=== PATIENT | male | born 1935 | race Caucasian/White ===

== ENCOUNTER 2017-07-21 01:00 | Emergency (ER) | payer MEDICARE ==
[~2017-07-21] VITALS: Ht 175.3 cm; Wt 69.0 kg
[~2017-07-21 01:00] MED LIST: ASPI-1071 PO; DUTA0.5C40 PO; FLO0.4C PO; IBUP-1984 PO; NUT.237L32 PO; OLAN2.5T28 PO; SENN-129 PO; TRAZ-143 PO
[2017-07-21 01:21] LABS: BASOPHILS % (AUTO) 0.4 % (0-1); EOSINOPHILS # (AUTO) 0.4 X10'3 (0-0.9); HEMATOCRIT 42.9 % (42.0-52.0); HEMOGLOBIN 14.4 g/dl (14.0-17.9); LYMPHOCYTES # (AUTO) 1.2 X10'3 (1.1-4.8); LYMPHOCYTES % (AUTO) 19.3 % (21-51); MEAN CORPUSCULAR HGB CONC 33.6 % (33.0-36.5); MEAN CORPUSCULAR VOLUME 98.5 FL (78-98); MEAN PLATELET VOLUME 6.2 FL (7.4-10.4); MONOCYTES # (AUTO) 0.5 X10'3 (0-0.9); MONOCYTES % (AUTO) 8.8 % (2-12); NEUTROPHILS % (AUTO) 65.5 % (42-75); PLATELET COUNT 264 X10'3 (140-440); RED BLOOD COUNT 4.36 X10'6 (4.70-6.10); WHITE BLOOD COUNT 6.1 X10'3 (4.5-11.0)
[2017-07-21 01:34] LABS: ALANINE AMINOTRANSFERASE 18 U/L (12-78); ALBUMIN 3.5 G/DL (3.4-5.0); ALBUMIN/GLOBULIN RATIO 1.1 (1.1-1.5); ALKALINE PHOSPHATASE 58 IU/L (46-116); ANION GAP 5 (8-16); ASPARTATE AMINO TRANSFERASE 12 U/L (10-37); BILIRUBIN,TOTAL 0.4 MG/DL (0.1-1.0); BLOOD UREA NITROGEN 30 MG/DL (7-18); CALCIUM 8.2 MG/DL (8.5-10.1); CHLORIDE 110 MMOL/L (99-107); GLUCOSE 111 MG/DL (70-104); SODIUM 144 MMOL/L (135-145); TOTAL CARBON DIOXIDE 28.8 MMOL/L (24-32); TOTAL PROTEIN 6.6 G/DL (6.4-8.2); eGFR 72 ML/MIN
[2017-07-21 02:24] VITALS: BP 117/75
== END 2017-07-21 02:26 | disposition home or self-care (01) ==
LOC: ER 01:01
DX: S00.81XA Abrasion of other part of head, initial encounter (principal); G43.909 Migraine, unspecified, not intractable, without status migrainosus; F03.90 Unspecified dementia, unspecified severity, without behavioral disturbance, psychotic disturbance, mood disturbance, and anxiety; I25.10 Atherosclerotic heart disease of native coronary artery without angina pectoris; E78.00 Pure hypercholesterolemia, unspecified; I25.2 Old myocardial infarction; Z95.1 Presence of aortocoronary bypass graft; Z86.73 Personal history of transient ischemic attack (TIA), and cerebral infarction without residual deficits; Z88.0 Allergy status to penicillin; Z79.82 Long term (current) use of aspirin; W06.XXXA Fall from bed, initial encounter; Y93.89 Activity, other specified; Y92.89 Other specified places as the place of occurrence of the external cause; Y99.8 Other external cause status
CPT/HCPCS: 36415; 80053; 85025; 99284

== ENCOUNTER 2017-09-26 11:06 | Inpatient (IN) | payer MEDICARE ==
[~2017-09-26] VITALS: Ht 172.7 cm; Wt 66.0 kg
[2017-09-26] MEDS ORDERED: normal saline 1000ML IV soln IVB ONE (11:25)
[2017-09-26 11:43] LABS: BASOPHILS % (AUTO) 0.3 % (0-1); EOSINOPHILS # (AUTO) 0.3 X10'3 (0-0.9); EOSINOPHILS % (AUTO) 2.9 % (0-6); HEMATOCRIT 41.5 % (42.0-52.0); HEMOGLOBIN 14.1 g/dl (14.0-17.9); LYMPHOCYTES # (AUTO) 0.7 X10'3 (1.1-4.8); MEAN CORPUSCULAR HEMOGLOBIN 33.6 PG (27.0-31.0); MEAN CORPUSCULAR HGB CONC 34.1 % (33.0-36.5); MEAN CORPUSCULAR VOLUME 98.4 FL (78-98); MEAN PLATELET VOLUME 6.4 FL (7.4-10.4); MONOCYTES # (AUTO) 0.8 X10'3 (0-0.9); MONOCYTES % (AUTO) 8.1 % (2-12); NEUTROPHILS # (AUTO) 7.7 X10'3 (1.8-7.7); NEUTROPHILS % (AUTO) 81.7 % (42-75); PLATELET COUNT 197 X10'3 (140-440); RED BLOOD COUNT 4.21 X10'6 (4.70-6.10); RED CELL DISTRIBUTION WIDTH 14.3 % (11.5-14.5); WHITE BLOOD COUNT 9.4 X10'3 (4.5-11.0)
[2017-09-26 12:07] LABS: ALANINE AMINOTRANSFERASE 12 U/L (12-78); ALBUMIN 3.1 G/DL (3.4-5.0); ALBUMIN/GLOBULIN RATIO 0.8 (1.1-1.5); ALKALINE PHOSPHATASE 59 IU/L (46-116); ANION GAP 8 (8-16); ASPARTATE AMINO TRANSFERASE 37 U/L (10-37); BILIRUBIN,TOTAL 0.8 MG/DL (0.1-1.0); BLOOD UREA NITROGEN 32 MG/DL (7-18); BUN/CREATININE RATIO 33.3 (5.4-32.0); CALCIUM 8.3 MG/DL (8.5-10.1); CHLORIDE 108 MMOL/L (99-107); CREATININE 0.96 MG/DL (0.60-1.10); GLUCOSE 90 MG/DL (70-104); MAGNESIUM 2.3 MG/DL (1.5-2.4); PHOSPHORUS 2.3 MG/DL (2.3-4.5); POTASSIUM 3.9 MMOL/L (3.5-5.1); SODIUM 144 MMOL/L (135-145); TOTAL CARBON DIOXIDE 27.7 MMOL/L (24-32); TOTAL PROTEIN 6.9 G/DL (6.4-8.2); eGFR 75 ML/MIN
[2017-09-26 13:04] LABS: CLARITY,URINE Cloudy (Clear); COLOR,URINE Yellow (Yellow); GLUCOSE, URINE Negative (Neg); KETONES,URINE 15 mg/dl (Neg); LEUKOCYTE ESTERASE ,URINE Small (Neg); NITRITES, URINE Negative (Neg); OCCULT BLOOD,URINE Negative (Neg); PH,URINE 5.5 (4.8-8.0); PROTEIN,URINE 30 mg/dl (Neg); UA COLLECTION TYPE STRAIGHT CATH
[2017-09-26 13:15] LABS: MUCUS STRANDS MANY /LPF (Neg); RBC,URINE NONE SEEN /HPF (0-2); SQUAMOUS EPITHELIAL CELL,UR NONE SEEN /LPF (FEW); WBC,URINE 0-4 /HPF (0-4)
[2017-09-26 13:17] LABS: BACTERIA,URINE NONE SEEN /HPF (Neg)
[2017-09-26] MEDS ORDERED: ondansetron/PF 4mg/2ml inj IV PRN (15:05)
[2017-09-26] MEDS ORDERED: mag hydrox/Alum hydrox/simeth 30ml oral suspension PO PRN (15:05)
[2017-09-26] MEDS ORDERED: magnesium hydroxide 30ml (MOM) UD suspension PO PRN (15:05)
[2017-09-26] MEDS ORDERED: acetaminophen 325mg tablet PO PRN (15:05)
[2017-09-26] MEDS ORDERED: sennosides/docusate sodium tablet PO PRN (15:25)
[2017-09-26] MEDS: normal saline 1000ml 1,000 ML IV SCH (16:33)
[2017-09-26 18:02] LABS: GLUCOSE,CSF 67 MG/DL (40-75); TOTAL PROTEIN,CSF 83 MG/DL (30-60)
[2017-09-26 18:32] LABS: APPEARANCE,CSF CLEAR; CSF RBC 9 /CU MM (0); CSF SUPERNATANT COLOR COLORLESS; CSF VOLUME 10 ML; TUBE# COUNTED 1
[2017-09-26 18:33] LABS: APPEARANCE,CSF CLEAR; CSF RBC 0 /CU MM (0); CSF SUPERNATANT COLOR COLORLESS; CSF VOLUME 10 ML; TUBE# COUNTED 4
[2017-09-26 18:35] LABS: CSF WBC CT 0 /CU MM (0-5); CSF WBC CT 1 /CU MM (0-5)
[2017-09-26] MEDS: OLANZapine 2.5MG tablet PO SCH (21:00)
[2017-09-26] MEDS: dutasteride 0.5 MG capsule PO SCH (21:00)
[2017-09-26 22:00] VITALS: BP 141/82
[2017-09-26] MEDS ORDERED: MORPHINE 2MG in 2ml NS syringe IV PRN (23:30)
[2017-09-27] VITALS (25 sets, daily range): BP systolic 114–166; BP diastolic 63–90
[2017-09-27] MEDS: normal saline 1000ml 1,000 ML IV SCH ×2 (05:28→17:44)
[2017-09-27 05:47] LABS: BASOPHILS % (AUTO) 0.5 % (0-1); EOSINOPHILS # (AUTO) 0.6 X10'3 (0-0.9); EOSINOPHILS % (AUTO) 7.8 % (0-6); HEMATOCRIT 39.6 % (42.0-52.0); HEMOGLOBIN 13.5 g/dl (14.0-17.9); LYMPHOCYTES # (AUTO) 0.9 X10'3 (1.1-4.8); LYMPHOCYTES % (AUTO) 12.1 % (21-51); MEAN CORPUSCULAR HEMOGLOBIN 33.5 PG (27.0-31.0); MEAN CORPUSCULAR HGB CONC 34.2 % (33.0-36.5); MEAN CORPUSCULAR VOLUME 98.2 FL (78-98); MEAN PLATELET VOLUME 6.8 FL (7.4-10.4); MONOCYTES # (AUTO) 0.6 X10'3 (0-0.9); MONOCYTES % (AUTO) 7.9 % (2-12); NEUTROPHILS # (AUTO) 5.6 X10'3 (1.8-7.7); NEUTROPHILS % (AUTO) 71.7 % (42-75); PLATELET COUNT 201 X10'3 (140-440); RED BLOOD COUNT 4.03 X10'6 (4.70-6.10); RED CELL DISTRIBUTION WIDTH 13.9 % (11.5-14.5); WHITE BLOOD COUNT 7.8 X10'3 (4.5-11.0)
[2017-09-27 06:13] LABS: ALANINE AMINOTRANSFERASE 29 U/L (12-78); ALBUMIN 2.6 G/DL (3.4-5.0); ALBUMIN/GLOBULIN RATIO 0.7 (1.1-1.5); ALKALINE PHOSPHATASE 55 IU/L (46-116); ANION GAP 8 (8-16); ASPARTATE AMINO TRANSFERASE 34 U/L (10-37); BILIRUBIN,TOTAL 0.8 MG/DL (0.1-1.0); BLOOD UREA NITROGEN 24 MG/DL (7-18); BUN/CREATININE RATIO 30.8 (5.4-32.0); CHLORIDE 111 MMOL/L (99-107); CREATININE 0.78 MG/DL (0.60-1.10); GLUCOSE 90 MG/DL (70-104); POTASSIUM 3.9 MMOL/L (3.5-5.1); SODIUM 144 MMOL/L (135-145); TOTAL CARBON DIOXIDE 25.5 MMOL/L (24-32); TOTAL PROTEIN 6.4 G/DL (6.4-8.2); eGFR > 90 ML/MIN
[2017-09-27] MEDS: tamsulosin 0.4mg capsule PO SCH ×2 (08:00→08:21)
[2017-09-27 10:17] LABS: PARTIAL THROMBOPLASTIN TIME 30 SECONDS (22-32); PROTHROMBIN TIME 10.6 SECONDS (9.0-12.0)
[2017-09-27] MEDS ORDERED: ceFAZolin 1000mg inj ONE ×3 (11:52→13:44)
[2017-09-27] MEDS ORDERED: vancomycin 1,000mg inj ONE ×2 (11:52→13:44)
[2017-09-27] MEDS ORDERED: clindamycin 600mg/D5W 50ml 50 ML IV ONE (12:00)
[2017-09-27] MEDS ORDERED: morphine 4 MG/ML inj SYRINge IV PRN ×3 (12:13→13:40)
[2017-09-27] MEDS ORDERED: BUPIVAcaine/PF 7.5mg/ml (0.75%) 10ml vial ONE (12:58)
[2017-09-27] MEDS ORDERED: fentaNYL/PF 50MCG/1 ML 2ML syringe ONE (13:00)
[2017-09-27] MEDS ORDERED: MIDAZolam 5mg/5ml vial ONE (13:01)
[2017-09-27] MEDS ORDERED: ringers solution, lacted 1,000 ML IV SCH (13:37)
[2017-09-27] MEDS ORDERED: ondansetron/PF 4mg/2ml inj IV PRN ×2 (13:40→15:20)
[2017-09-27] MEDS ORDERED: meperidine/PF 50mg/ml syringe IV PRN ×3 (13:40)
[2017-09-27] MEDS ORDERED: proCHLORperazine 10 MG/2 ml inj IV PRN (13:40)
[2017-09-27] MEDS ORDERED: morphine 10mg/ml inj. ONE (14:38)
[2017-09-27] MEDS ORDERED: ROPIVAcaine 0.5% (5mg/ml) 30ml vial ONE (14:38)
[2017-09-27] MEDS ORDERED: ketorolac trometh. 30mg/ml inj. ONE (14:38)
[2017-09-27] MEDS ORDERED: oxyCODONE IR 5mg (immed. release) tablet PO PRN (15:20)
[2017-09-27] MEDS ORDERED: bisacodyl 10mg suppository rectal RC PRN (15:20)
[2017-09-27] MEDS ORDERED: acetaminophen 325mg tablet PO PRN (15:20)
[2017-09-27] MEDS ORDERED: magnesium hydroxide 30ml (MOM) UD suspension PO PRN (15:20)
[2017-09-27] MEDS ORDERED: HYDROmorphone inj. 0.5 MG/0.5 ML DISP.SYRIN IV PRN ×2 (15:20)
[2017-09-27] MEDS ORDERED: diphenhydrAMINE 25mg capsule PO PRN ×2 (15:20)
[2017-09-27] MEDS ORDERED: BUPIVAcaine/PF 2.5 mg/ml (0.25%) 30ml vial ONE (15:22)
[2017-09-27] MEDS: ceFAZolin 1GM/D5W- ADD-VANTAGE 50 ML IV SCH ×2 (16:00→23:34)
[2017-09-27] MEDS ORDERED: naloxone 0.4 mg/ml inj ONE (17:12)
[2017-09-27] MEDS ORDERED: naloxone 0.4 mg/ml inj IV PRN (17:15)
[2017-09-27] MEDS ORDERED: tranexamic acid inj. 1,000 MG in normal saline 100ml IV soln 100 ML IV ONE (18:20)
[2017-09-27] MEDS ORDERED: vancomycin/NS 1 GM ADD-VANTAGE 250 ML IV SCH (20:00)
[2017-09-27] MEDS: sennosides 8.6mg tablet PO SCH (20:13)
[2017-09-27] MEDS: celeCOXIB 100mg capsule PO SCH (20:13)
[2017-09-27] MEDS: gabapentin 300mg capsule PO SCH (20:14)
[2017-09-27] MEDS: acetaminophen 325mg tablet PO SCH (20:14)
[2017-09-27] MEDS: dutasteride 0.5 MG capsule PO SCH (22:16)
[2017-09-27] MEDS: OLANZapine 2.5MG tablet PO SCH (22:16)
[2017-09-27] MEDS: potassium cl 20mEq in 1/2 NS 1,000 ML IV SCH ×2 (22:23→23:19)
[2017-09-28 02:00] VITALS: BP 106/64
[2017-09-28] MEDS: acetaminophen 325mg tablet PO SCH ×4 (02:00→20:00)
[2017-09-28] MEDS: oxyCODONE IR 5mg (immed. release) tablet PO PRN ×2 (05:16→21:07)
[2017-09-28 05:34] LABS: BASOPHILS % (AUTO) 0 % (0-1); EOSINOPHILS # (AUTO) 0.1 X10'3 (0-0.9); EOSINOPHILS % (AUTO) 1.3 % (0-6); HEMATOCRIT 36.9 % (42.0-52.0); HEMOGLOBIN 12.5 g/dl (14.0-17.9); LYMPHOCYTES # (AUTO) 0.4 X10'3 (1.1-4.8); LYMPHOCYTES % (AUTO) 5.5 % (21-51); MEAN CORPUSCULAR HEMOGLOBIN 33.6 PG (27.0-31.0); MEAN CORPUSCULAR HGB CONC 33.9 % (33.0-36.5); MEAN CORPUSCULAR VOLUME 99.1 FL (78-98); MEAN PLATELET VOLUME 7.2 FL (7.4-10.4); MONOCYTES # (AUTO) 0.6 X10'3 (0-0.9); MONOCYTES % (AUTO) 7.3 % (2-12); NEUTROPHILS % (AUTO) 85.9 % (42-75); PLATELET COUNT 207 X10'3 (140-440); RED BLOOD COUNT 3.72 X10'6 (4.70-6.10); RED CELL DISTRIBUTION WIDTH 13.8 % (11.5-14.5); WHITE BLOOD COUNT 8.1 X10'3 (4.5-11.0)
[2017-09-28 06:00] VITALS: BP 126/66
[2017-09-28 06:02] LABS: ALANINE AMINOTRANSFERASE 28 U/L (12-78); ALBUMIN 2.5 G/DL (3.4-5.0); ALBUMIN/GLOBULIN RATIO 0.7 (1.1-1.5); ALKALINE PHOSPHATASE 50 IU/L (46-116); ANION GAP 9 (8-16); ASPARTATE AMINO TRANSFERASE 32 U/L (10-37); BILIRUBIN,TOTAL 0.7 MG/DL (0.1-1.0); BLOOD UREA NITROGEN 19 MG/DL (7-18); BUN/CREATININE RATIO 24.7 (5.4-32.0); CALCIUM 8.1 MG/DL (8.5-10.1); CHLORIDE 109 MMOL/L (99-107); CREATININE 0.77 MG/DL (0.60-1.10); GLUCOSE 138 MG/DL (70-104); POTASSIUM 4.4 MMOL/L (3.5-5.1); SODIUM 142 MMOL/L (135-145); TOTAL CARBON DIOXIDE 23.7 MMOL/L (24-32); eGFR > 90 ML/MIN
[2017-09-28] MEDS: normal saline 1000ml 1,000 ML IV SCH ×2 (07:04→20:24)
[2017-09-28] MEDS: potassium cl 20mEq in 1/2 NS 1,000 ML IV SCH ×3 (07:19→22:29)
[2017-09-28] MEDS: celeCOXIB 100mg capsule PO SCH ×3 (08:00→21:07)
[2017-09-28] MEDS: enoxaparin 40mg/0.4ml syringe SQ SCH (08:29)
[2017-09-28] MEDS: tamsulosin 0.4mg capsule PO SCH (08:29)
[2017-09-28] MEDS: carbidoba-levodopa 25-100mg tablet PO SCH (08:30)
[2017-09-28] MEDS: gabapentin 300mg capsule PO SCH ×3 (08:30→21:06)
[2017-09-28 10:29] VITALS: BP 95/48
[2017-09-28 18:00] VITALS: BP 104/50
[2017-09-28] MEDS: dutasteride 0.5 MG capsule PO SCH (21:00)
[2017-09-28] MEDS: sennosides 8.6mg tablet PO SCH (21:00)
[2017-09-28] MEDS: OLANZapine 2.5MG tablet PO SCH (21:08)
[2017-09-28] MEDS: levoFLOXACIN-Levaquin 500mg/D5 100 ML IV SCH (22:13)
[2017-09-28 23:00] VITALS: BP 114/54
[2017-09-29] MEDS: acetaminophen 325mg tablet PO SCH ×4 (01:49→14:00)
[2017-09-29] MEDS: oxyCODONE IR 5mg (immed. release) tablet PO PRN ×2 (05:16→09:05)
[2017-09-29] MEDS: potassium cl 20mEq in 1/2 NS 1,000 ML IV SCH (05:25)
[2017-09-29 06:00] VITALS: BP 155/87
[2017-09-29 06:34] LABS: BASOPHILS % (AUTO) 0.3 % (0-1); EOSINOPHILS # (AUTO) 0.3 X10'3 (0-0.9); EOSINOPHILS % (AUTO) 3.4 % (0-6); HEMATOCRIT 34.4 % (42.0-52.0); HEMOGLOBIN 11.7 g/dl (14.0-17.9); LYMPHOCYTES % (AUTO) 10.5 % (21-51); MEAN CORPUSCULAR HEMOGLOBIN 33.4 PG (27.0-31.0); MEAN CORPUSCULAR VOLUME 98.3 FL (78-98); MEAN PLATELET VOLUME 6.3 FL (7.4-10.4); MONOCYTES # (AUTO) 0.7 X10'3 (0-0.9); MONOCYTES % (AUTO) 7.3 % (2-12); NEUTROPHILS # (AUTO) 7.2 X10'3 (1.8-7.7); NEUTROPHILS % (AUTO) 78.5 % (42-75); PLATELET COUNT 236 X10'3 (140-440); WHITE BLOOD COUNT 9.1 X10'3 (4.5-11.0)
[2017-09-29 06:53] LABS: ALANINE AMINOTRANSFERASE 27 U/L (12-78); ALBUMIN 2.2 G/DL (3.4-5.0); ALBUMIN/GLOBULIN RATIO 0.6 (1.1-1.5); ALKALINE PHOSPHATASE 45 IU/L (46-116); ANION GAP 8 (8-16); ASPARTATE AMINO TRANSFERASE 26 U/L (10-37); BILIRUBIN,TOTAL 0.4 MG/DL (0.1-1.0); BLOOD UREA NITROGEN 24 MG/DL (7-18); BUN/CREATININE RATIO 26.7 (5.4-32.0); CALCIUM 7.8 MG/DL (8.5-10.1); CHLORIDE 112 MMOL/L (99-107); GLUCOSE 112 MG/DL (70-104); POTASSIUM 3.9 MMOL/L (3.5-5.1); SODIUM 144 MMOL/L (135-145); TOTAL PROTEIN 5.6 G/DL (6.4-8.2); eGFR 81 ML/MIN
[2017-09-29] MEDS: celeCOXIB 100mg capsule PO SCH ×3 (08:00→19:14)
[2017-09-29] MEDS: enoxaparin 40mg/0.4ml syringe SQ SCH ×2 (08:00→09:06)
[2017-09-29] MEDS: carbidoba-levodopa 25-100mg tablet PO SCH (09:05)
[2017-09-29] MEDS: gabapentin 300mg capsule PO SCH ×4 (09:05→19:13)
[2017-09-29] MEDS: tamsulosin 0.4mg capsule PO SCH (09:05)
[2017-09-29] MEDS: normal saline 1000ml 1,000 ML IV SCH ×2 (09:39→23:04)
[2017-09-29 10:00] VITALS: BP 141/62
[2017-09-29 11:14] LABS: CRYPTOCOCCUS ANTIGEN, CSF Negative (Negative)
[2017-09-29 13:37] LABS: CSF WEST NILE VIRUS, IGG Negative (Negative); VDRL, CSF Non Reactive (Non Rea:<1:1)
[2017-09-29] MEDS ORDERED: acetaminophen 325mg tablet PO PRN (15:20)
[2017-09-29 15:24] LABS: CSF WEST NILE VIRUS, IGM Negative (Negative)
[2017-09-29 18:00] VITALS: BP 141/73
[2017-09-29 19:11] LABS: HSV 1 PCR Negative (Negative); HSV 2 PCR Negative (Negative)
[2017-09-29] MEDS: lactobacillus rhamnosus 10,000 MMU CELLS/CAPSULE PO SCH (19:14)
[2017-09-29] MEDS: OLANZapine 2.5MG tablet PO SCH (19:15)
[2017-09-29] MEDS: dutasteride 0.5 MG capsule PO SCH (19:15)
[2017-09-29] MEDS: sennosides 8.6mg tablet PO SCH (19:16)
[2017-09-29 22:00] VITALS: BP 157/88
[2017-09-29] MEDS: levoFLOXACIN-Levaquin 500mg/D5 100 ML IV SCH (23:46)
[2017-09-30 06:00] VITALS: BP 158/87
[2017-09-30 06:06] LABS: ALANINE AMINOTRANSFERASE 28 U/L (12-78); ALBUMIN 2.3 G/DL (3.4-5.0); ALBUMIN/GLOBULIN RATIO 0.7 (1.1-1.5); ALKALINE PHOSPHATASE 48 IU/L (46-116); ANION GAP 10 (8-16); ASPARTATE AMINO TRANSFERASE 27 U/L (10-37); BILIRUBIN,TOTAL 0.6 MG/DL (0.1-1.0); BLOOD UREA NITROGEN 17 MG/DL (7-18); BUN/CREATININE RATIO 21.3 (5.4-32.0); CALCIUM 8.1 MG/DL (8.5-10.1); CHLORIDE 111 MMOL/L (99-107); GLUCOSE 114 MG/DL (70-104); POTASSIUM 3.8 MMOL/L (3.5-5.1); SODIUM 145 MMOL/L (135-145); TOTAL CARBON DIOXIDE 24.5 MMOL/L (24-32); TOTAL PROTEIN 5.8 G/DL (6.4-8.2); eGFR > 90 ML/MIN
[2017-09-30 06:23] LABS: BASOPHILS % (AUTO) 0.5 % (0-1); EOSINOPHILS # (AUTO) 0.5 X10'3 (0-0.9); EOSINOPHILS % (AUTO) 5.6 % (0-6); HEMATOCRIT 34.5 % (42.0-52.0); HEMOGLOBIN 11.7 g/dl (14.0-17.9); LYMPHOCYTES # (AUTO) 1.1 X10'3 (1.1-4.8); LYMPHOCYTES % (AUTO) 12.3 % (21-51); MEAN CORPUSCULAR HEMOGLOBIN 33.1 PG (27.0-31.0); MEAN CORPUSCULAR HGB CONC 33.9 % (33.0-36.5); MEAN CORPUSCULAR VOLUME 97.6 FL (78-98); MEAN PLATELET VOLUME 6.5 FL (7.4-10.4); MONOCYTES # (AUTO) 0.7 X10'3 (0-0.9); MONOCYTES % (AUTO) 8.2 % (2-12); NEUTROPHILS # (AUTO) 6.3 X10'3 (1.8-7.7); NEUTROPHILS % (AUTO) 73.4 % (42-75); PLATELET COUNT 241 X10'3 (140-440); RED BLOOD COUNT 3.53 X10'6 (4.70-6.10); RED CELL DISTRIBUTION WIDTH 13.8 % (11.5-14.5); WHITE BLOOD COUNT 8.6 X10'3 (4.5-11.0)
[2017-09-30] MEDS: tamsulosin 0.4mg capsule PO SCH (09:09)
[2017-09-30] MEDS: lactobacillus rhamnosus 10,000 MMU CELLS/CAPSULE PO SCH ×2 (09:09→20:00)
[2017-09-30] MEDS: carbidoba-levodopa 25-100mg tablet PO SCH (09:09)
[2017-09-30] MEDS: gabapentin 300mg capsule PO SCH ×2 (09:09→20:20)
[2017-09-30] MEDS: celeCOXIB 100mg capsule PO SCH ×2 (09:09→20:10)
[2017-09-30] MEDS: enoxaparin 40mg/0.4ml syringe SQ SCH (09:10)
[2017-09-30] MEDS: levoFLOXACIN-Levaquin 500mg/D5 100 ML IV SCH (09:10)
[2017-09-30 10:00] VITALS: BP 95/52
[2017-09-30 18:00] VITALS: BP 111/61
[2017-09-30] MEDS: normal saline 1000ml 1,000 ML IV SCH (18:33)
[2017-09-30] MEDS: OLANZapine 2.5MG tablet PO SCH (20:10)
[2017-09-30] MEDS: sennosides 8.6mg tablet PO SCH (20:20)
[2017-09-30] MEDS: dutasteride 0.5 MG capsule PO SCH (20:20)
[2017-10-01] MEDS: oxyCODONE IR 5mg (immed. release) tablet PO PRN (01:34)
[2017-10-01 05:20] LABS: BASOPHILS % (AUTO) 0.4 % (0-1); EOSINOPHILS # (AUTO) 0.6 X10'3 (0-0.9); EOSINOPHILS % (AUTO) 6.8 % (0-6); HEMATOCRIT 36.1 % (42.0-52.0); HEMOGLOBIN 12.2 g/dl (14.0-17.9); LYMPHOCYTES # (AUTO) 1.2 X10'3 (1.1-4.8); LYMPHOCYTES % (AUTO) 13.8 % (21-51); MEAN CORPUSCULAR HEMOGLOBIN 33.4 PG (27.0-31.0); MEAN CORPUSCULAR HGB CONC 33.8 % (33.0-36.5); MEAN CORPUSCULAR VOLUME 98.8 FL (78-98); MEAN PLATELET VOLUME 6.5 FL (7.4-10.4); MONOCYTES # (AUTO) 0.6 X10'3 (0-0.9); MONOCYTES % (AUTO) 7.2 % (2-12); NEUTROPHILS # (AUTO) 6.4 X10'3 (1.8-7.7); NEUTROPHILS % (AUTO) 71.8 % (42-75); PLATELET COUNT 267 X10'3 (140-440); RED BLOOD COUNT 3.65 X10'6 (4.70-6.10); RED CELL DISTRIBUTION WIDTH 14.1 % (11.5-14.5); WHITE BLOOD COUNT 8.9 X10'3 (4.5-11.0)
[2017-10-01 05:38] LABS: ALANINE AMINOTRANSFERASE 32 U/L (12-78); ALBUMIN 2.4 G/DL (3.4-5.0); ALBUMIN/GLOBULIN RATIO 0.6 (1.1-1.5); ALKALINE PHOSPHATASE 51 IU/L (46-116); ANION GAP 7 (8-16); ASPARTATE AMINO TRANSFERASE 33 U/L (10-37); BILIRUBIN,TOTAL 0.5 MG/DL (0.1-1.0); BLOOD UREA NITROGEN 23 MG/DL (7-18); BUN/CREATININE RATIO 26.1 (5.4-32.0); CALCIUM 8.3 MG/DL (8.5-10.1); CHLORIDE 110 MMOL/L (99-107); CREATININE 0.88 MG/DL (0.60-1.10); GLUCOSE 107 MG/DL (70-104); POTASSIUM 4.1 MMOL/L (3.5-5.1); SODIUM 144 MMOL/L (135-145); TOTAL CARBON DIOXIDE 26.7 MMOL/L (24-32); TOTAL PROTEIN 6.2 G/DL (6.4-8.2); eGFR 83 ML/MIN
[2017-10-01] MEDS: normal saline 1000ml 1,000 ML IV SCH ×3 (06:57→20:40)
[2017-10-01 07:05] VITALS: BP 163/79
[2017-10-01] MEDS: lactobacillus rhamnosus 10,000 MMU CELLS/CAPSULE PO SCH ×2 (07:26→19:35)
[2017-10-01] MEDS: carbidoba-levodopa 25-100mg tablet PO SCH (07:26)
[2017-10-01] MEDS: enoxaparin 40mg/0.4ml syringe SQ SCH (07:26)
[2017-10-01] MEDS: levoFLOXACIN-Levaquin 500mg/D5 100 ML IV SCH (07:26)
[2017-10-01] MEDS: celeCOXIB 100mg capsule PO SCH ×2 (07:26→19:35)
[2017-10-01] MEDS: gabapentin 300mg capsule PO SCH ×3 (07:27→19:35)
[2017-10-01] MEDS: tamsulosin 0.4mg capsule PO SCH (07:27)
[2017-10-01 10:00] VITALS: BP 104/57
[2017-10-01] MEDS ORDERED: HYDROcodone/acetaminophen 5mg/325mg tablet PO PRN (10:20)
[2017-10-01] MEDS ORDERED: HYDROcodone/acetaminophen 10/325mg tab PO PRN (10:20)
[2017-10-01] MEDS: traMADol 50MG tablet PO PRN (11:39)
[2017-10-01 18:00] VITALS: BP 121/72
[2017-10-01] MEDS: dutasteride 0.5 MG capsule PO SCH (19:35)
[2017-10-01] MEDS: OLANZapine 2.5MG tablet PO SCH (19:35)
[2017-10-01] MEDS: sennosides 8.6mg tablet PO SCH ×2 (19:35→19:57)
[2017-10-01 22:00] VITALS: BP 111/66
[2017-10-02 06:00] VITALS: BP 105/64
[2017-10-02] MEDS: gabapentin 300mg capsule PO SCH (08:41)
[2017-10-02] MEDS: tamsulosin 0.4mg capsule PO SCH (08:41)
[2017-10-02] MEDS: lactobacillus rhamnosus 10,000 MMU CELLS/CAPSULE PO SCH ×2 (08:41→19:37)
[2017-10-02] MEDS: carbidoba-levodopa 25-100mg tablet PO SCH (08:41)
[2017-10-02] MEDS: celeCOXIB 100mg capsule PO SCH ×2 (08:41→19:37)
[2017-10-02] MEDS: enoxaparin 40mg/0.4ml syringe SQ SCH (08:42)
[2017-10-02] MEDS: normal saline 1000ml 1,000 ML IV SCH ×2 (09:10→22:02)
[2017-10-02 10:00] VITALS: BP 91/61
[2017-10-02] MEDS: gabapentin 100mg capsule PO SCH ×2 (12:51→19:45)
[2017-10-02 18:27] VITALS: BP 132/74
[2017-10-02] MEDS: dutasteride 0.5 MG capsule PO SCH (19:42)
[2017-10-02] MEDS: sennosides 8.6mg tablet PO SCH (19:45)
[2017-10-02] MEDS ORDERED: traZODone 50mg tablet PO SCH (20:00)
[2017-10-02] MEDS ORDERED: OLANZapine 2.5MG tablet PO SCH (21:00)
[2017-10-02 22:00] VITALS: BP 131/71
[2017-10-03] MEDS: traMADol 50MG tablet PO PRN (05:23)
[2017-10-03 06:00] VITALS: BP 166/87
[2017-10-03] MEDS: enoxaparin 40mg/0.4ml syringe SQ SCH (08:00)
[2017-10-03] MEDS: celeCOXIB 100mg capsule PO SCH (08:00)
[2017-10-03] MEDS: carbidoba-levodopa 25-100mg tablet PO SCH (08:40)
[2017-10-03] MEDS: tamsulosin 0.4mg capsule PO SCH (08:40)
[2017-10-03] MEDS: lactobacillus rhamnosus 10,000 MMU CELLS/CAPSULE PO SCH (08:40)
[2017-10-03] MEDS: gabapentin 100mg capsule PO SCH ×2 (08:40→13:00)
[2017-10-03 10:00] VITALS: BP 146/77
[2017-10-03] MEDS: normal saline 1000ml 1,000 ML IV SCH (11:19)
[2017-10-03 17:11] LABS: LYME IGG P23 AB Absent (.); LYME IGG P28 AB Absent (.); LYME IGG P30 AB Absent (.); LYME IGG P41 AB Absent (.); LYME IGG P45 AB Absent (.); LYME IGG P58 AB Absent (.); LYME IGG P66 AB Absent (.); LYME IGG P93 AB Absent (.); LYME IGG WB INTERP Negative (.); LYME IGM P23 AB Absent (.); LYME IGM P39 AB Absent (.); LYME IGM P41 AB Absent (.); LYME IGM WB INTERP Negative (.)
== END 2017-10-03 13:35 | DRG 469 ==
LOC: ER 11:06 → ED HOLD 15:04 → ORTHO 4S 21:45 → PAS IN 09-27 12:00 → ORTHO 4S 09-27 18:10
PROVIDERS: ADMIT Emergency Medicine; ATTEND Family Medicine
PROC: 009U3ZX Drainage of Spinal Canal, Percutaneous Approach, Diagnostic (ICD-10-PCS; 2017-09-26)
PROC: 3E0T3BZ Introduction of Anesthetic Agent into Peripheral Nerves and Plexi, Percutaneous Approach (ICD-10-PCS; 2017-09-27)
PROC: 0SR9069 Replacement of Right Hip Joint with Oxidized Zirconium on Polyethylene Synthetic Substitute, Cemented, Open Approach (ICD-10-PCS; principal; 2017-09-27 12:40)
DX: S72.011A Unspecified intracapsular fracture of right femur, initial encounter for closed fracture (principal); E43 Unspecified severe protein-calorie malnutrition; G20 Parkinson's disease; G30.9 Alzheimer's disease, unspecified; F02.80 Dementia in other diseases classified elsewhere, unspecified severity, without behavioral disturbance, psychotic disturbance, mood disturbance, and anxiety; D62 Acute posthemorrhagic anemia; W18.39XA Other fall on same level, initial encounter; G43.909 Migraine, unspecified, not intractable, without status migrainosus; R29.6 Repeated falls; F28 Other psychotic disorder not due to a substance or known physiological condition; H54.62 Unqualified visual loss, left eye, normal vision right eye; N40.0 Benign prostatic hyperplasia without lower urinary tract symptoms; Z88.0 Allergy status to penicillin; Z79.82 Long term (current) use of aspirin; Z79.899 Other long term (current) drug therapy; Z87.440 Personal history of urinary (tract) infections; Z82.3 Family history of stroke; Z82.49 Family history of ischemic heart disease and other diseases of the circulatory system; Z68.22 Body mass index [BMI] 22.0-22.9, adult; Y93.89 Activity, other specified; Y92.89 Other specified places as the place of occurrence of the external cause; Y99.8 Other external cause status
CPT/HCPCS: 36415; 70450; 71045; 72170; 73502; 80053; 81001; 82945; 83605; 83735; 84100; 84157; 84443; 84484; 85025; 85610; 85730; 86592; 86617; 86788; 86789; 87015; 87040; 87070; 87088; 87210; 87529; 87899; 89051; 93306; 96360; 97110; 97116; 97161; 97530; 99285; A4310; A4315; A4344; A7000; C1713; C1776; C9250; J0690; J1650; J1885; J1956; J2250; J2270; J2310; J2795; J3010; J3370; J3490; J7030; J7120

== ENCOUNTER 2017-11-02 10:10 | Outpatient (CLI) | payer MEDICARE | END 2017-11-02 11:13 | LOC: ORTHO 10:10 | PROVIDERS: ATTEND Nurse Practitioner Family | DX: S72.001A Fracture of unspecified part of neck of right femur, initial encounter for closed fracture (principal); R29.6 Repeated falls; Z88.0 Allergy status to penicillin; X58.XXXA Exposure to other specified factors, initial encounter; Y93.89 Activity, other specified; Y92.89 Other specified places as the place of occurrence of the external cause; Y99.8 Other external cause status | CPT/HCPCS: 73502; 99213 ==

== ENCOUNTER 2018-02-06 09:56 | Outpatient (CLI) | payer MEDICARE ==
[2018-02-06 09:56] VITALS: BP 131/78
[~2018-02-06 09:56] MED LIST changes: -TRAZ-143 PO; +TRAZ-218 PO
== END 2018-02-06 10:25 | disposition home or self-care (01) ==
LOC: ORTHO 09:56
PROVIDERS: ATTEND Nurse Practitioner Family
DX: S72.001D Fracture of unspecified part of neck of right femur, subsequent encounter for closed fracture with routine healing (principal); G43.909 Migraine, unspecified, not intractable, without status migrainosus; F03.90 Unspecified dementia, unspecified severity, without behavioral disturbance, psychotic disturbance, mood disturbance, and anxiety; I10 Essential (primary) hypertension; Z88.0 Allergy status to penicillin; Z79.82 Long term (current) use of aspirin; Z96.641 Presence of right artificial hip joint; W19.XXXD Unspecified fall, subsequent encounter
CPT/HCPCS: 73502; 99213